=== PATIENT | male | born 1960 | race Caucasian/White ===

== ENCOUNTER → 2021-01-10 | Outpatient (CLI) | payer MEDICARE | LOC: KOH-I 01-09 13:00 | DX: M25.551 Pain in right hip (principal); M54.10 Radiculopathy, site unspecified; M71.38 Other bursal cyst, other site; M89.9 Disorder of bone, unspecified; R60.0 Localized edema | CPT/HCPCS: 73721 ==

== ENCOUNTER 2021-02-28 22:03 | Emergency (ER) | payer MEDICARE | END 2021-02-28 23:24 | disposition left against medical advice (07) | LOC: ER1 22:03 | DX: Z53.21 Procedure and treatment not carried out due to patient leaving prior to being seen by health care provider (principal) ==